=== PATIENT | male | born 1970 | race African-American/Black ===

== ENCOUNTER 2025-03-16 08:13 | Day surgery (SDC) | payer OTHER ==
[2025-03-11 09:43] VITALS: BMI 38.7
[~2025-03-16 08:13] MED LIST: Glycopyrrolate 0.2 MG/ML 5 ML SYRINGE ONE; Lidocaine 1% PF 5 ML VIAL ONE; PROPOFOL 40 ML ONE
== END 2025-03-16 08:17 | disposition home or self-care (01) ==
LOC: CSHSDC 08:13
PROVIDERS: ATTEND Surgery
PROC: 0DBL8ZX Excision of Transverse Colon, Via Natural or Artificial Opening Endoscopic, Diagnostic (ICD-10-PCS; principal; 2025-03-16)
PROC: 0DBP8ZX Excision of Rectum, Via Natural or Artificial Opening Endoscopic, Diagnostic (ICD-10-PCS; principal; 2025-03-16)
DX: Z12.11 Encounter for screening for malignant neoplasm of colon (principal); D12.3 Benign neoplasm of transverse colon; K62.1 Rectal polyp; K63.89 Other specified diseases of intestine; Z86.0101 Personal history of adenomatous and serrated colon polyps; I10 Essential (primary) hypertension; Z79.899 Other long term (current) drug therapy
CPT/HCPCS: 88305; J2704